=== PATIENT | male | born 1990 | race Caucasian/White ===

== ENCOUNTER 2020-10-18 13:23 | Inpatient (IN) | payer OTHER ==
[2020-10-18 14:30] VITALS: BMI 22.1
[2020-10-18] MEDS ORDERED: MAGNESIUM CITRATE 300 ML BOTTLE PO PRN (20:04)
[2020-10-18] MEDS ORDERED: P-EPHED 60MG/TRIPROLIDI 2.5MG TABLET PO PRN (20:04)
[2020-10-18] MEDS ORDERED: MAGNESIUM HYDROX 2400MG/30ML ORAL SUSPENSION 30 ML CUP PO PRN (20:04)
[2020-10-18] MEDS ORDERED: MAG HYDROX/AL HYDROX/SIMETH 30 ML UNIT-DOSE CUP PO PRN (20:04)
[2020-10-18] MEDS ORDERED: ACETAMINOPHEN 325 MG TABLET (FP) PO PRN (20:04)
[2020-10-18] MEDS ORDERED: LOPERAMIDE HCL 2 MG CAPSULE PO PRN (20:04)
[2020-10-18] MEDS ORDERED: guaiFENesin 200 MG/10 ML 10 ML UNIT-DOSE CUPS PO PRN (20:04)
[2020-10-18] MEDS: THIAMINE HCL 100 MG TABLET (FP) PO SCH (21:45)
[2020-10-18] MEDS: GABAPENTIN 300 MG CAPSULE PO SCH (21:47)
[2020-10-18] MEDS: hydrOXYzine PAMOATE 25 MG CAPSULE (FP) PO SCH (21:47)
[2020-10-18] MEDS: NICOTINE 14 MG/24 HOURS TOPICAL PATCH TD SCH (21:48)
[2020-10-18] MEDS ORDERED: TUBERCULIN PPD 5 TU/0.1ML VIAL ID ONE (21:50)
[2020-10-18] MEDS ORDERED: MELATONIN 5 MG TABLETS PO SCH (22:00)
[2020-10-18] MEDS: AMOX TR/POT CLAV 875MG/125MG TABLETS (FP) PO SCH (22:13)
[2020-10-18] MEDS: IBUPROFEN 400 MG TABLET (FP) PO PRN (22:30)
[2020-10-19] MEDS: cloNIDine HCL 0.1 MG TABLET PO PRN ×3 (00:20→21:44)
[2020-10-19] MEDS: GABAPENTIN 300 MG CAPSULE PO SCH (06:00)
[2020-10-19] MEDS: hydrOXYzine PAMOATE 25 MG CAPSULE (FP) PO SCH ×5 (06:00→21:42)
[2020-10-19] MEDS: methaDONE HCL 40 MG DISPERSABLE TABLET PO SCH (06:00)
[2020-10-19] MEDS: AMOX TR/POT CLAV 875MG/125MG TABLETS (FP) PO SCH ×2 (07:23→17:05)
[2020-10-19] MEDS: PRENATAL VITAMINS W/ FOLIC ACID TABLET (FP) PO SCH (09:20)
[2020-10-19] MEDS: NICOTINE 14 MG/24 HOURS TOPICAL PATCH TD SCH (09:20)
[2020-10-19] MEDS: GABAPENTIN 100 MG CAPSULE PO SCH ×2 (14:14→21:42)
[2020-10-19 15:28] LABS: HEMATOCRIT 37.1 % (35.4-49); MCH 29.9 pg (25.7-33.7); MCHC 32.4 g/dl (32.0-35.9); MEAN CELL VOLUME 92.5 fl (80-96); MEAN PLT VOLUME 8.1 fl (7.5-11.1); PLATELET COUNT 279 10^3/uL (134-434); RBC 4.01 M/mm3 (4.00-5.60); RDW 15.4 % (11.9-15.9); WHITE BLOOD COUNT 6.2 K/mm3 (4.0-10.0)
[2020-10-19 15:31] LABS: SICKLE CELL SCREEN NEGATIVE (NEGATIVE)
[2020-10-19] MEDS: IBUPROFEN 400 MG TABLET (FP) PO PRN (15:38)
[2020-10-19 15:49] LABS: ALBUMIN 3.4 g/dl (3.4-5.0); BLOOD UREA NITROGEN 15.1 mg/dL (7-18); CALCIUM 8.6 mg/dL (8.5-10.1)
[2020-10-19 15:52] LABS: CREATININE 0.6 mg/dL (0.55-1.3)
[2020-10-19 15:54] LABS: BILIRUBIN,TOTAL 0.6 mg/dL (0.2-1); TOT PROT 6.8 g/dl (6.4-8.2)
[2020-10-19 16:31] LABS: HIV INTERPRETATION NEGATIVE (NEGATIVE)
[2020-10-19 18:37] LABS: PH,URINE 6.5 (5.0-8.0); URINE APPEARANCE CLEAR; URINE BILIRUBIN NEGATIVE (NEGATIVE); URINE COLOR YELLOW; URINE GLUCOSE (UA) NEGATIVE (NEGATIVE); URINE KETONE NEGATIVE (NEGATIVE); URINE LEUK ESTERASE NEGATIVE (NEGATIVE); URINE NITRITE NEGATIVE (NEGATIVE); URINE PROTEIN NEGATIVE (NEGATIVE); URINE UROBILINOGEN 0.2 mg/dL (0.2-1.0)
[2020-10-19] MEDS: THIAMINE HCL 100 MG TABLET (FP) PO SCH (21:42)
[2020-10-19] MEDS: DIVALPROEX SODIUM 250 MG TABLET E.C. PO SCH (21:43)
[2020-10-19] MEDS ORDERED: DIVALPROEX SODIUM 500 MG TABLET E.C. PO SCH (22:00)
[2020-10-20] MEDS: methaDONE HCL 40 MG DISPERSABLE TABLET PO SCH (06:02)
[2020-10-20] MEDS: GABAPENTIN 100 MG CAPSULE PO SCH ×3 (06:03→21:04)
[2020-10-20] MEDS: hydrOXYzine PAMOATE 25 MG CAPSULE (FP) PO SCH ×5 (06:03→21:04)
[2020-10-20] MEDS: AMOX TR/POT CLAV 875MG/125MG TABLETS (FP) PO SCH ×2 (07:08→17:06)
[2020-10-20] MEDS: cloNIDine HCL 0.1 MG TABLET PO PRN ×2 (08:44→20:00)
[2020-10-20] MEDS: PRENATAL VITAMINS W/ FOLIC ACID TABLET (FP) PO SCH (10:24)
[2020-10-20] MEDS: NICOTINE 14 MG/24 HOURS TOPICAL PATCH TD SCH (10:25)
[2020-10-20] MEDS: SUVOREXANT 10 MG TABLET PO PRN (21:05)
[2020-10-20] MEDS: THIAMINE HCL 100 MG TABLET (FP) PO SCH (21:06)
[2020-10-20] MEDS: DIVALPROEX SODIUM 250 MG TABLET E.C. PO SCH (21:06)
[2020-10-20] MEDS ORDERED: MASKS NR ONE (22:16)
[2020-10-21] MEDS: methaDONE HCL 40 MG DISPERSABLE TABLET PO SCH (06:22)
[2020-10-21] MEDS: GABAPENTIN 100 MG CAPSULE PO SCH ×3 (06:23→21:50)
[2020-10-21] MEDS: hydrOXYzine PAMOATE 25 MG CAPSULE (FP) PO SCH ×5 (06:23→21:50)
[2020-10-21] MEDS: NICOTINE POLACRILEX 2 MG GUM BC PRN (06:26)
[2020-10-21] MEDS: AMOX TR/POT CLAV 875MG/125MG TABLETS (FP) PO SCH ×2 (07:02→17:01)
[2020-10-21] MEDS: cloNIDine HCL 0.1 MG TABLET PO PRN ×2 (08:35→19:59)
[2020-10-21] MEDS: PRENATAL VITAMINS W/ FOLIC ACID TABLET (FP) PO SCH (09:43)
[2020-10-21] MEDS: NICOTINE 14 MG/24 HOURS TOPICAL PATCH TD SCH (09:43)
[2020-10-21] MEDS: SUVOREXANT 10 MG TABLET PO PRN (21:49)
[2020-10-21] MEDS: DIVALPROEX SODIUM 250 MG TABLET E.C. PO SCH (21:50)
[2020-10-21] MEDS: THIAMINE HCL 100 MG TABLET (FP) PO SCH (21:51)
[2020-10-22] MEDS: methaDONE HCL 40 MG DISPERSABLE TABLET PO SCH (06:13)
[2020-10-22] MEDS: hydrOXYzine PAMOATE 25 MG CAPSULE (FP) PO SCH ×5 (06:13→21:03)
[2020-10-22] MEDS: GABAPENTIN 100 MG CAPSULE PO SCH ×3 (06:13→21:03)
[2020-10-22] MEDS: IBUPROFEN 400 MG TABLET (FP) PO PRN (06:59)
[2020-10-22] MEDS: AMOX TR/POT CLAV 875MG/125MG TABLETS (FP) PO SCH ×2 (07:02→17:06)
[2020-10-22] MEDS: cloNIDine HCL 0.1 MG TABLET PO PRN ×2 (08:49→17:31)
[2020-10-22] MEDS: PRENATAL VITAMINS W/ FOLIC ACID TABLET (FP) PO SCH (10:16)
[2020-10-22] MEDS: NICOTINE 14 MG/24 HOURS TOPICAL PATCH TD SCH (10:16)
[2020-10-22] MEDS: DIVALPROEX SODIUM 250 MG TABLET E.C. PO SCH (21:03)
[2020-10-22] MEDS: THIAMINE HCL 100 MG TABLET (FP) PO SCH (21:03)
[2020-10-22] MEDS: SUVOREXANT 10 MG TABLET PO PRN (21:04)
[2020-10-23] MEDS: methaDONE HCL 40 MG DISPERSABLE TABLET PO SCH (06:20)
[2020-10-23] MEDS: GABAPENTIN 100 MG CAPSULE PO SCH ×3 (06:20→21:57)
[2020-10-23] MEDS: hydrOXYzine PAMOATE 25 MG CAPSULE (FP) PO SCH ×5 (06:20→21:57)
[2020-10-23] MEDS: cloNIDine HCL 0.1 MG TABLET PO PRN ×2 (07:44→16:48)
[2020-10-23] MEDS: PRENATAL VITAMINS W/ FOLIC ACID TABLET (FP) PO SCH (10:23)
[2020-10-23] MEDS: NICOTINE 14 MG/24 HOURS TOPICAL PATCH TD SCH (10:23)
[2020-10-23] MEDS: DIVALPROEX SODIUM 250 MG TABLET E.C. PO SCH (21:56)
[2020-10-23] MEDS: THIAMINE HCL 100 MG TABLET (FP) PO SCH (21:57)
[2020-10-23] MEDS: SUVOREXANT 10 MG TABLET PO PRN (21:59)
[2020-10-24] MEDS: methaDONE HCL 40 MG DISPERSABLE TABLET PO SCH (06:09)
[2020-10-24] MEDS: hydrOXYzine PAMOATE 25 MG CAPSULE (FP) PO SCH ×5 (06:09→21:21)
[2020-10-24] MEDS: GABAPENTIN 100 MG CAPSULE PO SCH ×3 (06:09→21:20)
[2020-10-24] MEDS: cloNIDine HCL 0.1 MG TABLET PO PRN ×2 (06:28→17:47)
[2020-10-24] MEDS: PRENATAL VITAMINS W/ FOLIC ACID TABLET (FP) PO SCH (10:07)
[2020-10-24] MEDS: NICOTINE 14 MG/24 HOURS TOPICAL PATCH TD SCH (10:07)
[2020-10-24] MEDS: DIVALPROEX SODIUM 250 MG TABLET E.C. PO SCH (21:19)
[2020-10-24] MEDS: THIAMINE HCL 100 MG TABLET (FP) PO SCH (21:21)
[2020-10-24] MEDS: SUVOREXANT 10 MG TABLET PO PRN (21:22)
[2020-10-25] MEDS: hydrOXYzine PAMOATE 25 MG CAPSULE (FP) PO SCH ×5 (06:07→21:53)
[2020-10-25] MEDS: methaDONE HCL 40 MG DISPERSABLE TABLET PO SCH (06:07)
[2020-10-25] MEDS: GABAPENTIN 100 MG CAPSULE PO SCH ×3 (06:07→21:53)
[2020-10-25] MEDS: cloNIDine HCL 0.1 MG TABLET PO PRN ×2 (06:46→19:40)
[2020-10-25] MEDS: PRENATAL VITAMINS W/ FOLIC ACID TABLET (FP) PO SCH (10:15)
[2020-10-25] MEDS: NICOTINE 14 MG/24 HOURS TOPICAL PATCH TD SCH (10:15)
[2020-10-25] MEDS: THIAMINE HCL 100 MG TABLET (FP) PO SCH (21:53)
[2020-10-25] MEDS: DIVALPROEX SODIUM 250 MG TABLET E.C. PO SCH (21:53)
[2020-10-25] MEDS: SUVOREXANT 10 MG TABLET PO PRN (21:54)
[2020-10-26] MEDS: cloNIDine HCL 0.1 MG TABLET PO PRN ×2 (06:00→17:59)
[2020-10-26] MEDS: hydrOXYzine PAMOATE 25 MG CAPSULE (FP) PO SCH ×5 (06:00→21:04)
[2020-10-26] MEDS: methaDONE HCL 40 MG DISPERSABLE TABLET PO SCH (06:00)
[2020-10-26] MEDS: GABAPENTIN 100 MG CAPSULE PO SCH ×3 (06:00→21:03)
[2020-10-26] MEDS: PRENATAL VITAMINS W/ FOLIC ACID TABLET (FP) PO SCH (10:13)
[2020-10-26] MEDS: NICOTINE 14 MG/24 HOURS TOPICAL PATCH TD SCH (10:13)
[2020-10-26] MEDS: SUVOREXANT 10 MG TABLET PO PRN (21:03)
[2020-10-26] MEDS: DIVALPROEX SODIUM 250 MG TABLET E.C. PO SCH (21:04)
[2020-10-26] MEDS: THIAMINE HCL 100 MG TABLET (FP) PO SCH (21:04)
[2020-10-27] MEDS: methaDONE HCL 40 MG DISPERSABLE TABLET PO SCH (06:00)
[2020-10-27] MEDS: GABAPENTIN 100 MG CAPSULE PO SCH ×3 (06:01→21:44)
[2020-10-27] MEDS: hydrOXYzine PAMOATE 25 MG CAPSULE (FP) PO SCH ×5 (06:01→21:44)
[2020-10-27] MEDS: cloNIDine HCL 0.1 MG TABLET PO PRN ×2 (06:01→19:03)
[2020-10-27] MEDS: PRENATAL VITAMINS W/ FOLIC ACID TABLET (FP) PO SCH (09:52)
[2020-10-27] MEDS: NICOTINE 14 MG/24 HOURS TOPICAL PATCH TD SCH (09:52)
[2020-10-27] MEDS: SUVOREXANT 10 MG TABLET PO PRN (21:44)
[2020-10-27] MEDS: DIVALPROEX SODIUM 250 MG TABLET E.C. PO SCH (21:44)
[2020-10-27] MEDS: THIAMINE HCL 100 MG TABLET (FP) PO SCH (21:44)
[2020-10-28] MEDS: methaDONE HCL 40 MG DISPERSABLE TABLET PO SCH (06:19)
[2020-10-28] MEDS: hydrOXYzine PAMOATE 25 MG CAPSULE (FP) PO SCH (06:19)
[2020-10-28] MEDS: GABAPENTIN 100 MG CAPSULE PO SCH (06:19)
[2020-10-28] MEDS: cloNIDine HCL 0.1 MG TABLET PO PRN ×2 (07:08→19:25)
[2020-10-28] MEDS: NICOTINE 14 MG/24 HOURS TOPICAL PATCH TD SCH (10:20)
[2020-10-28] MEDS: hydrOXYzine PAMOATE 50 MG CAPSULE (FP) PO PRN ×2 (10:21→15:16)
[2020-10-28] MEDS: PRENATAL VITAMINS W/ FOLIC ACID TABLET (FP) PO SCH (10:55)
[2020-10-28] MEDS: GABAPENTIN 300 MG CAPSULE PO SCH ×2 (14:34→21:09)
[2020-10-28] MEDS: IBUPROFEN 400 MG TABLET (FP) PO PRN (16:07)
[2020-10-28] MEDS: DIVALPROEX SODIUM 500 MG TABLET E.C. PO SCH (21:09)
[2020-10-28] MEDS: THIAMINE HCL 100 MG TABLET (FP) PO SCH (21:09)
[2020-10-28] MEDS: SUVOREXANT 15 MG TABLET PO PRN (21:10)
[2020-10-29] MEDS: methaDONE HCL 40 MG DISPERSABLE TABLET PO SCH (06:22)
[2020-10-29] MEDS: GABAPENTIN 300 MG CAPSULE PO SCH ×3 (06:22→21:55)
[2020-10-29] MEDS: hydrOXYzine PAMOATE 50 MG CAPSULE (FP) PO PRN ×3 (07:00→21:55)
[2020-10-29] MEDS: cloNIDine HCL 0.1 MG TABLET PO PRN ×2 (08:49→21:55)
[2020-10-29] MEDS: PRENATAL VITAMINS W/ FOLIC ACID TABLET (FP) PO SCH (10:29)
[2020-10-29] MEDS: NICOTINE 14 MG/24 HOURS TOPICAL PATCH TD SCH (10:29)
[2020-10-29] MEDS: DIVALPROEX SODIUM 500 MG TABLET E.C. PO SCH (21:55)
[2020-10-29] MEDS: THIAMINE HCL 100 MG TABLET (FP) PO SCH (21:56)
[2020-10-29] MEDS: SUVOREXANT 15 MG TABLET PO PRN (21:56)
[2020-10-30] MEDS: methaDONE HCL 40 MG DISPERSABLE TABLET PO SCH (06:35)
[2020-10-30] MEDS: hydrOXYzine PAMOATE 50 MG CAPSULE (FP) PO PRN ×3 (06:35→21:07)
[2020-10-30] MEDS: GABAPENTIN 300 MG CAPSULE PO SCH ×3 (06:35→21:03)
[2020-10-30] MEDS: PRENATAL VITAMINS W/ FOLIC ACID TABLET (FP) PO SCH (10:11)
[2020-10-30] MEDS: NICOTINE 14 MG/24 HOURS TOPICAL PATCH TD SCH (10:11)
[2020-10-30] MEDS: cloNIDine HCL 0.1 MG TABLET PO PRN ×2 (10:11→21:07)
[2020-10-30] MEDS: THIAMINE HCL 100 MG TABLET (FP) PO SCH (21:05)
[2020-10-30] MEDS: DIVALPROEX SODIUM 500 MG TABLET E.C. PO SCH (21:05)
[2020-10-30] MEDS: SUVOREXANT 15 MG TABLET PO PRN (21:06)
[2020-10-31] MEDS: methaDONE HCL 40 MG DISPERSABLE TABLET PO SCH (05:58)
[2020-10-31] MEDS: cloNIDine HCL 0.1 MG TABLET PO PRN ×2 (05:58→21:40)
[2020-10-31] MEDS: GABAPENTIN 300 MG CAPSULE PO SCH ×3 (05:58→21:39)
[2020-10-31] MEDS: PRENATAL VITAMINS W/ FOLIC ACID TABLET (FP) PO SCH (10:36)
[2020-10-31] MEDS: NICOTINE 14 MG/24 HOURS TOPICAL PATCH TD SCH (10:36)
[2020-10-31] MEDS: hydrOXYzine PAMOATE 50 MG CAPSULE (FP) PO PRN ×2 (10:36→16:38)
[2020-10-31] MEDS ORDERED: PT OWN MED DRAWER 7, Y5N ONE (12:21)
[2020-10-31] MEDS: DIVALPROEX SODIUM 500 MG TABLET E.C. PO SCH (21:39)
[2020-10-31] MEDS: THIAMINE HCL 100 MG TABLET (FP) PO SCH (21:39)
[2020-10-31] MEDS: SUVOREXANT 15 MG TABLET PO PRN (21:40)
[2020-11-01] MEDS: methaDONE HCL 40 MG DISPERSABLE TABLET PO SCH (05:57)
[2020-11-01] MEDS: GABAPENTIN 300 MG CAPSULE PO SCH (05:57)
[2020-11-01] MEDS: cloNIDine HCL 0.1 MG TABLET PO PRN ×2 (06:55→18:00)
[2020-11-01] MEDS: hydrOXYzine PAMOATE 50 MG CAPSULE (FP) PO PRN (08:28)
[2020-11-01] MEDS: PRENATAL VITAMINS W/ FOLIC ACID TABLET (FP) PO SCH (10:13)
[2020-11-01] MEDS: NICOTINE 14 MG/24 HOURS TOPICAL PATCH TD SCH (10:13)
[2020-11-01] MEDS: GABAPENTIN 400 MG CAPSULE PO SCH ×2 (13:10→21:03)
[2020-11-01] MEDS: THIAMINE HCL 100 MG TABLET (FP) PO SCH (21:02)
[2020-11-01] MEDS: DIVALPROEX SODIUM 500 MG TABLET E.C. PO SCH (21:03)
[2020-11-01] MEDS: SUVOREXANT 15 MG TABLET PO PRN (21:03)
[2020-11-02] MEDS: methaDONE HCL 40 MG DISPERSABLE TABLET PO SCH (06:10)
[2020-11-02] MEDS: GABAPENTIN 400 MG CAPSULE PO SCH ×3 (06:11→21:32)
[2020-11-02] MEDS: cloNIDine HCL 0.1 MG TABLET PO PRN ×2 (08:14→20:17)
[2020-11-02] MEDS: PRENATAL VITAMINS W/ FOLIC ACID TABLET (FP) PO SCH (10:32)
[2020-11-02] MEDS: NICOTINE 14 MG/24 HOURS TOPICAL PATCH TD SCH (10:32)
[2020-11-02] MEDS: hydrOXYzine PAMOATE 50 MG CAPSULE (FP) PO PRN ×2 (10:33→17:28)
[2020-11-02] MEDS: DIVALPROEX SODIUM 500 MG TABLET E.C. PO SCH (21:31)
[2020-11-02] MEDS: THIAMINE HCL 100 MG TABLET (FP) PO SCH (21:31)
[2020-11-02] MEDS: SUVOREXANT 15 MG TABLET PO PRN (21:32)
[2020-11-03] MEDS: methaDONE HCL 40 MG DISPERSABLE TABLET PO SCH (06:03)
[2020-11-03] MEDS: GABAPENTIN 400 MG CAPSULE PO SCH ×3 (06:04→21:51)
[2020-11-03] MEDS: cloNIDine HCL 0.1 MG TABLET PO PRN ×2 (06:04→17:55)
[2020-11-03] MEDS: PRENATAL VITAMINS W/ FOLIC ACID TABLET (FP) PO SCH (10:15)
[2020-11-03] MEDS: NICOTINE 14 MG/24 HOURS TOPICAL PATCH TD SCH (10:15)
[2020-11-03] MEDS: hydrOXYzine PAMOATE 50 MG CAPSULE (FP) PO PRN (10:16)
[2020-11-03] MEDS: SUVOREXANT 15 MG TABLET PO PRN (21:50)
[2020-11-03] MEDS: THIAMINE HCL 100 MG TABLET (FP) PO SCH (21:51)
[2020-11-03] MEDS: DIVALPROEX SODIUM 500 MG TABLET E.C. PO SCH (21:51)
[2020-11-04] MEDS: methaDONE HCL 40 MG DISPERSABLE TABLET PO SCH (06:30)
[2020-11-04] MEDS: hydrOXYzine PAMOATE 50 MG CAPSULE (FP) PO PRN ×2 (06:31→14:34)
[2020-11-04] MEDS: GABAPENTIN 400 MG CAPSULE PO SCH ×3 (06:31→21:00)
[2020-11-04] MEDS: cloNIDine HCL 0.1 MG TABLET PO PRN ×2 (08:36→21:01)
[2020-11-04] MEDS: PRENATAL VITAMINS W/ FOLIC ACID TABLET (FP) PO SCH (10:50)
[2020-11-04] MEDS: NICOTINE 14 MG/24 HOURS TOPICAL PATCH TD SCH (10:50)
[2020-11-04] MEDS: THIAMINE HCL 100 MG TABLET (FP) PO SCH (21:00)
[2020-11-04] MEDS: DIVALPROEX SODIUM 500 MG TABLET E.C. PO SCH (21:00)
[2020-11-04] MEDS: SUVOREXANT 15 MG TABLET PO PRN (21:02)
[2020-11-05] MEDS: GABAPENTIN 400 MG CAPSULE PO SCH ×3 (05:50→21:55)
[2020-11-05] MEDS: hydrOXYzine PAMOATE 50 MG CAPSULE (FP) PO PRN ×2 (05:50→14:29)
[2020-11-05] MEDS: methaDONE HCL 40 MG DISPERSABLE TABLET PO SCH (05:50)
[2020-11-05] MEDS: cloNIDine HCL 0.1 MG TABLET PO PRN ×2 (07:08→22:06)
[2020-11-05] MEDS: NICOTINE 14 MG/24 HOURS TOPICAL PATCH TD SCH (10:37)
[2020-11-05] MEDS: PRENATAL VITAMINS W/ FOLIC ACID TABLET (FP) PO SCH (10:37)
[2020-11-05] MEDS: DIVALPROEX SODIUM 500 MG TABLET E.C. PO SCH (21:55)
[2020-11-05] MEDS: THIAMINE HCL 100 MG TABLET (FP) PO SCH (21:55)
[2020-11-05] MEDS: SUVOREXANT 15 MG TABLET PO PRN (21:57)
[2020-11-06] MEDS: methaDONE HCL 40 MG DISPERSABLE TABLET PO SCH (06:07)
[2020-11-06] MEDS: GABAPENTIN 400 MG CAPSULE PO SCH ×3 (06:07→21:39)
[2020-11-06] MEDS: hydrOXYzine PAMOATE 50 MG CAPSULE (FP) PO PRN ×2 (06:08→15:41)
[2020-11-06] MEDS: cloNIDine HCL 0.1 MG TABLET PO PRN ×2 (07:56→21:38)
[2020-11-06] MEDS: PRENATAL VITAMINS W/ FOLIC ACID TABLET (FP) PO SCH (10:43)
[2020-11-06] MEDS: NICOTINE 14 MG/24 HOURS TOPICAL PATCH TD SCH (10:43)
[2020-11-06] MEDS: NICOTINE POLACRILEX 2 MG GUM BC PRN (15:41)
[2020-11-06] MEDS: THIAMINE HCL 100 MG TABLET (FP) PO SCH (21:38)
[2020-11-06] MEDS: SUVOREXANT 15 MG TABLET PO PRN (21:39)
[2020-11-06] MEDS: DIVALPROEX SODIUM 500 MG TABLET E.C. PO SCH (21:39)
[2020-11-07] MEDS: methaDONE HCL 40 MG DISPERSABLE TABLET PO SCH (06:07)
[2020-11-07] MEDS: cloNIDine HCL 0.1 MG TABLET PO PRN ×2 (06:08→21:09)
[2020-11-07] MEDS: GABAPENTIN 400 MG CAPSULE PO SCH ×3 (06:08→21:08)
[2020-11-07] MEDS ORDERED: SUVOREXANT 15 MG TABLET PO PRN (08:13)
[2020-11-07] MEDS: PRENATAL VITAMINS W/ FOLIC ACID TABLET (FP) PO SCH (09:52)
[2020-11-07] MEDS: hydrOXYzine PAMOATE 50 MG CAPSULE (FP) PO PRN ×2 (09:52→16:38)
[2020-11-07] MEDS: NICOTINE 14 MG/24 HOURS TOPICAL PATCH TD SCH (09:53)
[2020-11-07] MEDS: DIVALPROEX SODIUM 500 MG TABLET E.C. PO SCH (21:08)
[2020-11-07] MEDS: THIAMINE HCL 100 MG TABLET (FP) PO SCH (21:10)
[2020-11-08] MEDS: methaDONE HCL 40 MG DISPERSABLE TABLET PO SCH (06:05)
[2020-11-08] MEDS: GABAPENTIN 400 MG CAPSULE PO SCH (06:05)
[2020-11-08] MEDS: cloNIDine HCL 0.1 MG TABLET PO PRN (06:05)
[2020-11-08 07:58] VITALS: BP 123/77; PULSE 72; TEMP 97.5
[2020-11-08] MEDS: hydrOXYzine PAMOATE 50 MG CAPSULE (FP) PO PRN (08:32)
[2020-11-08] MEDS: NICOTINE 14 MG/24 HOURS TOPICAL PATCH TD SCH (09:13)
[2020-11-08] MEDS: PRENATAL VITAMINS W/ FOLIC ACID TABLET (FP) PO SCH (09:13)
== END 2020-11-08 09:20 | disposition home or self-care (01) | DRG 772 ==
LOC: YASAS 13:23 → Y3W 19:11
PROVIDERS: ADMIT Allergy & Immunology; ATTEND Allergy & Immunology
PROC: HZ42ZZZ Group Counseling for Substance Abuse Treatment, Cognitive-Behavioral (ICD-10-PCS; principal; 2020-10-18)
DX: F11.20 Opioid dependence, uncomplicated (principal); F14.20 Cocaine dependence, uncomplicated; F13.20 Sedative, hypnotic or anxiolytic dependence, uncomplicated; F17.210 Nicotine dependence, cigarettes, uncomplicated; F19.282 Other psychoactive substance dependence with psychoactive substance-induced sleep disorder; F19.24 Other psychoactive substance dependence with psychoactive substance-induced mood disorder; B18.2 Chronic viral hepatitis C; Z62.810 Personal history of physical and sexual abuse in childhood; Z91.410 Personal history of adult physical and sexual abuse; Z86.69 Personal history of other diseases of the nervous system and sense organs; Z87.2 Personal history of diseases of the skin and subcutaneous tissue; Z86.59 Personal history of other mental and behavioral disorders
CPT/HCPCS: 36415; 80053; 80164; 81003; 85027; 85660; 86780; 87389; 93005; 93010; J0735

== ENCOUNTER 2024-10-14 19:54 | Inpatient (IN) | payer OTHER ==
[2024-10-14 20:00] VITALS: BMI 24.3
[2024-10-14] MEDS ORDERED: NALOXONE (NARCAN) HCL 4 MG/0.1 ML SPRAY NS PRN (20:59)
[2024-10-14] MEDS ORDERED: BISMUTH SUBSALICYLATE 524 MG/30 ML PO PRN (20:59)
[2024-10-14] MEDS ORDERED: MAG HYDROX/AL HYDROX/SIMETH 30 ML UNIT-DOSE CUP PO PRN (20:59)
[2024-10-14] MEDS ORDERED: MAGNESIUM HYDROX 2400MG/30ML ORAL SUSPENSION 30 ML CUP PO PRN (20:59)
[2024-10-14] MEDS ORDERED: DICYCLOMINE HCL 10 MG CAPSULE PO PRN (20:59)
[2024-10-14] MEDS ORDERED: BENZONATATE 200 MG CAPSULE PO PRN (20:59)
[2024-10-14] MEDS ORDERED: ACETAMINOPHEN 325 MG TABLET (FP) PO PRN (20:59)
[2024-10-14] MEDS ORDERED: ONDANSETRON *ODT* 4 MG TABLET SL PRN (20:59)
[2024-10-14] MEDS ORDERED: BENZOCAINE/MENTHOL (CHLORASEPTIC ) LOZENGE MM PRN (20:59)
[2024-10-14] MEDS ORDERED: IBUPROFEN 400 MG TABLET (FP) PO PRN (20:59)
[2024-10-14] MEDS ORDERED: POLYETHYLENE GLYCOL (HEALTHYLAX) 3350 17 GM PACKET PO PRN (20:59)
[2024-10-14] MEDS ORDERED: guaiFENesin 600 MG TABLET.ER (FP) PO PRN (20:59)
[2024-10-14] MEDS ORDERED: methaDONE HCL 10 MG TABLET (FOR DETOX USE ONLY) PO PRN (21:02)
[2024-10-14] MEDS ORDERED: diazePAM 5 MG TABLET PO PRN ×2 (21:03→21:07)
[2024-10-14] MEDS ORDERED: methaDONE HCL 10 MG TABLET (FOR DETOX USE ONLY) PO ONE (22:00)
[2024-10-14] MEDS: levETIRAcetam 500 MG TABLET (FP) PO SCH (22:20)
[2024-10-14] MEDS: THIAMINE 100 MG TABLET PO SCH (22:20)
[2024-10-14] MEDS: cloNIDine HCL 0.1 MG TABLET PO PRN (22:20)
[2024-10-14] MEDS: MELATONIN 5 MG TABLETS PO SCH (22:20)
[2024-10-14] MEDS: METHOCARBAMOL 500 MG TABLET PO PRN (22:21)
[2024-10-14] MEDS ORDERED: diazePAM 5 MG TABLET PO SCH (23:00)
[2024-10-15] MEDS: LOPERAMIDE HCL 2 MG CAPSULE PO PRN (00:37)
[2024-10-15] MEDS: PRENATAL VITAMINS W/ FOLIC ACID TABLET (FP) PO SCH (09:09)
[2024-10-15] MEDS: NICOTINE 21 MG/24 HOURS TOPICAL PATCH TD SCH (09:15)
[2024-10-15 12:12] LABS: HEMATOCRIT 41.2 % (40.1-51.0); HEMOGLOBIN 13.9 g/dL (13.7-17.5); MCHC 33.7 g/dl (32.3-36.5); MEAN CELL VOLUME 90.7 fl (79.0-92.2); MEAN PLT VOLUME 11.7 fl (9.4-12.4); PLATELET COUNT 244 x10^3/uL (163-337); RDW 14.3 % (12.0-15.6)
[2024-10-15 12:19] LABS: CHLORIDE 107 mmol/L (98-107); POTASSIUM 4.3 mmol/L (3.5-5.1); SODIUM 138 mmol/L (136-145)
[2024-10-15 12:29] LABS: ALBUMIN 3.8 g/dl (3.4-5.0); ANION GAP 8 mmol/L (4-13); CALCIUM 9.1 mg/dL (8.5-10.1); CO2 23 mmol/L (21-32); GLUCOSE,RANDOM 87 mg/dL (74-106)
[2024-10-15 12:32] LABS: BLOOD UREA NITROGEN 19.6 mg/dL (7-18); CREATININE 0.7 mg/dL (0.55-1.3); SGOT/AST 20 U/L (15-37)
[2024-10-15 12:34] LABS: BILIRUBIN,TOTAL 0.8 mg/dL (0.2-1); TOT PROT 7.1 g/dl (6.4-8.2)
[2024-10-15 12:35] LABS: ALK PHOS 56 U/L (45-117)
[2024-10-15 12:46] LABS: SGPT/ALT 24 U/L (13-61)
[2024-10-15] MEDS: LACTULOSE 20 GM/30 ML UDC (FOR ORAL USE ONLY) PO SCH (13:40)
[2024-10-15] MEDS: diazePAM 5 MG TABLET PO SCH (17:06)
[2024-10-15] MEDS: diazePAM 5 MG TABLET PO PRN (19:41)
[2024-10-15] MEDS: IBUPROFEN 600 MG TABLET (FP) PO PRN (21:15)
[2024-10-16] MEDS: hydrOXYzine PAMOATE 25 MG CAPSULE (FP) PO PRN (02:47)
[2024-10-16] MEDS ORDERED: diazePAM 5 MG TABLET PO SCH ×2 (06:00→18:00)
[2024-10-16] MEDS ORDERED: diazePAM 5 MG TABLET PO PRN ×2 (08:59→14:11)
[2024-10-16] MEDS ORDERED: methaDONE HCL 10 MG TABLET (FOR DETOX USE ONLY) PO ONE (10:00)
[2024-10-16] MEDS: diazePAM 5 MG TABLET PO PRN (10:21)
[2024-10-16] MEDS: methaDONE HCL 10 MG TABLET (FOR DETOX USE ONLY) PO ONE (12:28)
[2024-10-16] MEDS: BENZTROPINE MESYLATE 1 MG TABLET PO SCH ×2 (13:58→15:54)
[2024-10-16] MEDS: diazePAM 5 MG TABLET PO ONE (14:40)
[2024-10-16] MEDS: diazePAM 5 MG TABLET PO SCH (17:59)
[2024-10-17] MEDS ORDERED: diazePAM 5 MG TABLET PO SCH ×3 (06:00)
[2024-10-17] MEDS: methaDONE HCL 10 MG TABLET PO ONE (09:31)
[2024-10-17] MEDS ORDERED: methaDONE HCL 10 MG TABLET PO SCH (10:00)
[2024-10-18] MEDS: NICOTINE POLACRILEX 2 MG GUM BUC PRN (05:34)
[2024-10-18] MEDS ORDERED: diazePAM 5 MG TABLET PO ONE (06:00)
[2024-10-18] MEDS ORDERED: diazePAM 5 MG TABLET PO SCH ×2 (06:00)
[2024-10-18 06:18] VITALS: RESP 16
[2024-10-18] MEDS: methaDONE HCL 10 MG TABLET PO SCH (09:32)
[2024-10-18 09:35] VITALS: BP 153/86; PULSE 90; TEMP 97.9
[2024-10-18] MEDS ORDERED: methaDONE HCL 10 MG TABLET (FOR DETOX USE ONLY) PO ONE (10:00)
[2024-10-19] MEDS ORDERED: diazePAM 5 MG TABLET PO ONE ×2 (06:00)
== END 2024-10-18 12:03 | disposition home or self-care (01) | DRG 773 ==
LOC: YASAS 19:54 → Y3N 21:43 → Y6N 23:50
PROVIDERS: ADMIT Allergy & Immunology; ATTEND Family Medicine Addiction Medicine
PROC: HZ2ZZZZ Detoxification Services for Substance Abuse Treatment (ICD-10-PCS; principal; 2024-10-14)
DX: F10.230 Alcohol dependence with withdrawal, uncomplicated (principal); F13.230 Sedative, hypnotic or anxiolytic dependence with withdrawal, uncomplicated; F11.20 Opioid dependence, uncomplicated; F17.210 Nicotine dependence, cigarettes, uncomplicated; F31.9 Bipolar disorder, unspecified; F19.280 Other psychoactive substance dependence with psychoactive substance-induced anxiety disorder; F19.282 Other psychoactive substance dependence with psychoactive substance-induced sleep disorder; F19.24 Other psychoactive substance dependence with psychoactive substance-induced mood disorder; F41.9 Anxiety disorder, unspecified; Z62.810 Personal history of physical and sexual abuse in childhood; Z91.410 Personal history of adult physical and sexual abuse
CPT/HCPCS: 36415; 80053; 80164; 80305; 80307; 82140; 85027; 86780; 93005; 93010